=== PATIENT | male | born 1970 | race African-American/Black ===

== ENCOUNTER 2024-02-10 14:37 | Inpatient (IN) | payer OTHER ==
[2024-02-10] MEDS ORDERED: BENZONATATE 200 MG CAPSULE PO PRN (18:03)
[2024-02-10] MEDS ORDERED: chlordiazePOXIDE HCL 25 MG CAPSULE PO PRN (18:03)
[2024-02-10] MEDS ORDERED: NALOXONE (NARCAN) HCL 4 MG/0.1 ML SPRAY NS PRN (18:03)
[2024-02-10] MEDS ORDERED: NALOXONE HCL 0.4 MG/ML VIAL IM PRN (18:03)
[2024-02-10] MEDS ORDERED: hydrOXYzine PAMOATE 25 MG CAPSULE (FP) PO PRN (18:03)
[2024-02-10] MEDS ORDERED: DICYCLOMINE HCL 10 MG CAPSULE PO PRN (18:03)
[2024-02-10] MEDS ORDERED: IBUPROFEN 400 MG TABLET (FP) PO PRN (18:03)
[2024-02-10] MEDS ORDERED: MAG HYDROX/AL HYDROX/SIMETH 30 ML UNIT-DOSE CUP PO PRN (18:03)
[2024-02-10] MEDS ORDERED: LOPERAMIDE HCL 2 MG CAPSULE PO PRN (18:03)
[2024-02-10] MEDS ORDERED: BISMUTH SUBSALICYLATE 524 MG/30 ML PO PRN (18:03)
[2024-02-10] MEDS ORDERED: MAGNESIUM HYDROX 2400MG/30ML ORAL SUSPENSION 30 ML CUP PO PRN (18:03)
[2024-02-10] MEDS ORDERED: ONDANSETRON *ODT* 4 MG TABLET SL PRN (18:03)
[2024-02-10] MEDS ORDERED: POLYETHYLENE GLYCOL (HEALTHYLAX) 3350 17 GM PACKET PO PRN (18:03)
[2024-02-10] MEDS ORDERED: ALBUTEROL SO4 HFA INHALER IH PRN (18:12)
[2024-02-10 18:39] VITALS: BMI 22.6
[2024-02-10] MEDS: IBUPROFEN 600 MG TABLET (FP) PO PRN (22:11)
[2024-02-10] MEDS: MELATONIN 5 MG TABLETS PO SCH (22:12)
[2024-02-10] MEDS: chlordiazePOXIDE HCL 25 MG CAPSULE PO SCH (22:12)
[2024-02-10] MEDS: THIAMINE 100 MG TABLET PO SCH (22:13)
[2024-02-11] MEDS: PRENATAL VITAMINS W/ FOLIC ACID TABLET (FP) PO SCH (10:11)
[2024-02-11 10:12] LABS: HEMATOCRIT 44.7 % (35.4-49); HEMOGLOBIN 14.8 GM/dL (11.7-16.9); MCH 28.5 pg (25.7-33.7); MCHC 33.1 g/dl (32.0-35.9); MEAN CELL VOLUME 86.1 fl (80-96); MEAN PLT VOLUME 8.2 fl (7.5-11.1); PLATELET COUNT 264 10^3/uL (134-434); RBC 5.19 M/mm3 (4.00-5.60); RDW 16.7 % (11.9-15.9); WHITE BLOOD COUNT 7.7 K/mm3 (4.0-10.0)
[2024-02-11 12:05] LABS: CHLORIDE 96 mmol/L (98-107); POTASSIUM 3.5 mmol/L (3.5-5.1); SODIUM 137 mmol/L (136-145)
[2024-02-11 12:07] LABS: ALBUMIN 2.8 g/dl (3.4-5.0); ANION GAP 14 mmol/L (4-13); BLOOD UREA NITROGEN 6.9 mg/dL (7-18); CALCIUM 9.4 mg/dL (8.5-10.1); CO2 28 mmol/L (21-32)
[2024-02-11 12:08] LABS: GLUCOSE,RANDOM 81 mg/dL (74-106)
[2024-02-11 12:10] LABS: SGOT/AST 20 U/L (15-37); SGPT/ALT 19 U/L (13-61)
[2024-02-11 12:11] LABS: CREATININE 0.7 mg/dL (0.55-1.3)
[2024-02-11 12:12] LABS: BILIRUBIN,TOTAL 0.8 mg/dL (0.2-1); TOT PROT 6.2 g/dl (6.4-8.2)
[2024-02-11 12:13] LABS: ALK PHOS 129 U/L (45-117)
[2024-02-11 16:22] LABS: PH,URINE 7.5 (5.0-8.0); URINE APPEARANCE CLEAR; URINE BILIRUBIN NEGATIVE (NEGATIVE); URINE COLOR YELLOW; URINE GLUCOSE (UA) NEGATIVE (NEGATIVE); URINE KETONE NEGATIVE (NEGATIVE); URINE LEUK ESTERASE NEGATIVE (NEGATIVE); URINE NITRITE NEGATIVE (NEGATIVE); URINE PROTEIN NEGATIVE (NEGATIVE)
[2024-02-11] MEDS: QUEtiapine FUMARATE 50 MG TABLET PO SCH (22:14)
[2024-02-11] MEDS: guaiFENesin 600 MG TABLET.ER (FP) PO PRN (22:17)
[2024-02-12] MEDS: chlordiazePOXIDE HCL 25 MG CAPSULE PO SCH (05:55)
[2024-02-13] MEDS ORDERED: chlordiazePOXIDE HCL 10 MG CAPSULE PO PRN
[2024-02-13] MEDS: chlordiazePOXIDE HCL 10 MG CAPSULE PO SCH (05:56)
[2024-02-13] MEDS: BENZOCAINE/MENTHOL (CHLORASEPTIC ) LOZENGE MM PRN (17:24)
[2024-02-13] MEDS: P-EPHED 60MG/TRIPROLIDI 2.5MG TABLET PO PRN (18:28)
[2024-02-13] MEDS: METHOCARBAMOL 500 MG TABLET PO PRN (23:00)
[2024-02-14] MEDS: chlordiazePOXIDE HCL 10 MG CAPSULE PO SCH (06:00)
[2024-02-14] MEDS: FLUTICASONE PROP 0.05% 16 GM NASAL SPRAY NS SCH (15:43)
[2024-02-14] MEDS: ACETAMINOPHEN 325 MG TABLET (FP) PO PRN (17:41)
[2024-02-15] MEDS: chlordiazePOXIDE HCL 10 MG CAPSULE PO ONE (05:54)
[2024-02-15 20:38] VITALS: RESP 16
[2024-02-16 09:52] VITALS: BP 100/66; PULSE 83; TEMP 98
== END 2024-02-16 11:57 | disposition other institution (70) | DRG 775 ==
LOC: YASAS 14:37 → Y3N 18:07
PROVIDERS: ADMIT Surgery; ATTEND Surgery
PROC: HZ2ZZZZ Detoxification Services for Substance Abuse Treatment (ICD-10-PCS; principal; 2024-02-10)
DX: F10.230 Alcohol dependence with withdrawal, uncomplicated (principal); F12.20 Cannabis dependence, uncomplicated; F17.210 Nicotine dependence, cigarettes, uncomplicated; F41.8 Other specified anxiety disorders; J45.909 Unspecified asthma, uncomplicated; D17.22 Benign lipomatous neoplasm of skin and subcutaneous tissue of left arm; R09.81 Nasal congestion; Z87.81 Personal history of (healed) traumatic fracture
CPT/HCPCS: 0241U-QW; 36415; 71046-TC-FY; 71111-TC-FY; 80053; 80305; 80307; 81003; 85027; 86780; 87811; 93005; 93010

== ENCOUNTER 2024-02-16 12:13 | Inpatient (IN) | payer OTHER ==
[2024-02-16] MEDS ORDERED: POLYETHYLENE GLYCOL (HEALTHYLAX) 3350 17 GM PACKET PO PRN (14:01)
[2024-02-16] MEDS ORDERED: IBUPROFEN 400 MG TABLET (FP) PO PRN (14:01)
[2024-02-16] MEDS ORDERED: MAG HYDROX/AL HYDROX/SIMETH 30 ML UNIT-DOSE CUP PO PRN (14:01)
[2024-02-16] MEDS ORDERED: ACETAMINOPHEN 325 MG TABLET (FP) PO PRN (14:01)
[2024-02-16] MEDS ORDERED: LOPERAMIDE HCL 2 MG CAPSULE PO PRN (14:01)
[2024-02-16] MEDS ORDERED: BENZOCAINE/MENTHOL (CHLORASEPTIC ) LOZENGE MM PRN (14:01)
[2024-02-16] MEDS ORDERED: IBUPROFEN 600 MG TABLET (FP) PO PRN (14:01)
[2024-02-16] MEDS ORDERED: BENZONATATE 200 MG CAPSULE PO PRN (14:01)
[2024-02-16] MEDS ORDERED: METHOCARBAMOL 500 MG TABLET PO PRN (14:01)
[2024-02-16] MEDS ORDERED: NALOXONE HCL 0.4 MG/ML VIAL IVPUSH PRN (14:01)
[2024-02-16] MEDS ORDERED: NALOXONE (NARCAN) HCL 4 MG/0.1 ML SPRAY NS PRN (14:01)
[2024-02-16] MEDS ORDERED: MAGNESIUM HYDROX 2400MG/30ML ORAL SUSPENSION 30 ML CUP PO PRN (14:01)
[2024-02-16] MEDS: MELATONIN 5 MG TABLETS PO SCH (21:08)
[2024-02-16] MEDS: THIAMINE 100 MG TABLET PO SCH (21:08)
[2024-02-16] MEDS: QUEtiapine FUMARATE 50 MG TABLET PO SCH (21:09)
[2024-02-17] MEDS: ALBUTEROL SO4 HFA INHALER IH PRN (02:56)
[2024-02-17] MEDS: PRENATAL VITAMINS W/ FOLIC ACID TABLET (FP) PO SCH (09:31)
[2024-02-17] MEDS: FLUTICASONE PROP 0.05% 16 GM NASAL SPRAY NS SCH (09:31)
[2024-02-17] MEDS ORDERED: FLUTICASONE PROP 0.05% 16 GM NASAL SPRAY NS SCH (10:00)
[2024-02-17] MEDS: guaiFENesin 600 MG TABLET.ER (FP) PO PRN (12:32)
[2024-02-19] MEDS ORDERED: BISMUTH SUBSALICYLATE 524 MG/30 ML PO PRN (13:51)
[2024-02-19] MEDS ORDERED: DICYCLOMINE HCL 10 MG CAPSULE PO PRN (13:51)
[2024-02-19] MEDS ORDERED: BENZONATATE 200 MG CAPSULE PO PRN (13:51)
[2024-02-19] MEDS: AZITHROMYCIN 250 MG TABLET PO ONE (14:45)
[2024-02-20] MEDS: P-EPHED 60MG/TRIPROLIDI 2.5MG TABLET PO PRN (07:59)
[2024-02-20] MEDS: AZITHROMYCIN 250 MG TABLET PO SCH (09:31)
[2024-02-20] MEDS: guaiFENesin 600 MG TABLET.ER (FP) PO PRN (09:33)
[2024-02-20] MEDS: QUEtiapine FUMARATE 50 MG TABLET PO ONE (10:54)
[2024-02-20 11:39] LABS: INR 0.98 (0.83-1.09); PROTHROMBIN TIME (PATIENT) 11.1 SEC (9.7-13.0)
[2024-02-20] MEDS: QUEtiapine FUMARATE 50 MG TABLET PO SCH (21:09)
[2024-02-23] MEDS: NALTREXONE HCL 50 MG TABLET PO ONE (13:33)
[2024-02-24] MEDS: NALTREXONE HCL 50 MG TABLET PO SCH (10:24)
[2024-02-24] MEDS: CHOLECALCIFEROL (VIT D3) 400 UNIT (10 MCG) TABLET PO SCH (10:25)
[2024-02-25] MEDS ORDERED: QUEtiapine FUMARATE 25 MG TABLET ONE (20:49)
[2024-02-26] MEDS ORDERED: QUEtiapine FUMARATE 25 MG TABLET ONE (09:03)
[2024-02-28] MEDS ORDERED: TUBERCULIN PPD 5 TU/0.1ML VIAL ID ONE (12:22)
[2024-03-01] MEDS: LACTULOSE 20 GM/30 ML UDC (FOR ORAL USE ONLY) PO SCH (14:14)
[2024-03-03] MEDS: QUEtiapine FUMARATE 100 MG TABLET (FP) PO SCH (10:04)
[2024-03-03] MEDS: hydrOXYzine PAMOATE 25 MG CAPSULE (FP) PO PRN (14:32)
[2024-03-06] MEDS: NALTREXONE HCL 50 MG TABLET PO ONE (09:50)
[2024-03-07] MEDS ORDERED: NALTREXONE MICROSPHERES (VIVITROL) 380 MG DISP.SYRIN IM ONE (10:00)
[2024-03-07] MEDS: NALTREXONE MICROSPHERES (VIVITROL) 380 MG DISP.SYRIN IM ONE (12:27)
[2024-03-09 06:57] VITALS: RESP 18
[2024-03-10 06:47] VITALS: TEMP 97.2
[2024-03-11 07:02] VITALS: BP 107/65; PULSE 92
== END 2024-03-11 09:55 | disposition home or self-care (01) | DRG 772 ==
LOC: YASAS 12:13 → Y5N 12:15
PROVIDERS: ADMIT Psychiatry & Neurology Pain Medicine; ATTEND Psychiatry & Neurology Pain Medicine
PROC: HZ42ZZZ Group Counseling for Substance Abuse Treatment, Cognitive-Behavioral (ICD-10-PCS; principal; 2024-02-16)
DX: F10.20 Alcohol dependence, uncomplicated (principal); F14.20 Cocaine dependence, uncomplicated; F12.20 Cannabis dependence, uncomplicated; F17.210 Nicotine dependence, cigarettes, uncomplicated; F19.24 Other psychoactive substance dependence with psychoactive substance-induced mood disorder; F41.8 Other specified anxiety disorders; E72.20 Disorder of urea cycle metabolism, unspecified; D17.22 Benign lipomatous neoplasm of skin and subcutaneous tissue of left arm; J45.909 Unspecified asthma, uncomplicated; R29.6 Repeated falls; Z99.89 Dependence on other enabling machines and devices
CPT/HCPCS: 0241U-QW; 36415; 82140; 82652; 83735; 84439; 84443; 85610; J2315